=== PATIENT | male | born 1950 | race Caucasian/White ===

== ENCOUNTER 2022-12-23 08:52 | Outpatient (CLI) | payer OTHER | END 2022-12-23 23:00 | disposition home or self-care (01) | LOC: LAB 08:52 | PROVIDERS: ATTEND Surgery | DX: U07.1 COVID-19 (principal); Z20.828 Contact with and (suspected) exposure to other viral communicable diseases ==

== ENCOUNTER → 2022-12-24 | Day surgery (SDC) | payer OTHER ==
[~2022-12-24] VITALS: Ht 185.4 cm; Wt 90.7 kg
== END | disposition home or self-care (01) ==
LOC: EDBD → CIR.AMB 12-17 07:00
PROVIDERS: ATTEND Surgery
DX: K40.90 Unilateral inguinal hernia, without obstruction or gangrene, not specified as recurrent (principal); D17.79 Benign lipomatous neoplasm of other sites; Z20.822 Contact with and (suspected) exposure to COVID-19; Z87.891 Personal history of nicotine dependence; F12.90 Cannabis use, unspecified, uncomplicated